=== PATIENT | male | born 1955 | race Two or more races ===

== ENCOUNTER 2021-02-12 10:27 | Emergency (ER) | payer OTHER ==
[~2021-02-12] VITALS: Ht 160 cm; Wt 65.9 kg
[2021-02-12 13:39] VITALS: BP 179/77
[2021-02-12] MEDS ORDERED: KETO5DRO4 EACHEYE (14:24)
[2021-02-12] MEDS ORDERED: CETI10TA74 PO (14:24)
--- NOTE | 2021-02-12 14:24 | PHYS DOC ---
Past Medical History Past Medical History: Diabetes-Type II, Hypertension Past Surgical History: No Surgical History Smoking Status: Never Smoker Alcohol Use: None General Adult EDM: Chief Complaint: EYE PROBLEMS HPI: HPI: Patient is a 65 year old male with history of diabetes, hypertension, who presents to the ED today complaining of bilateral eye redness, itching, clear drainage, symptoms began 3 days ago. Patient denies any vision loss. Review of Systems: Review of Systems: Constitutional: Denies fever or chills. [] Eyes: Reports bilateral eye redness, itching, clear drainage. Denies change in visual acuity. [] Musculoskeletal: Denies back pain or joint pain. [] Integument: Denies rash. [] Neurologic: Denies headache, focal weakness or sensory changes. [] Psychiatric: Denies depression or anxiety. [] Heart Score: C/O Chest Pain: N/A Risk Factors: Risk Factors: DM, Current or recent (<one month) smoker, HTN, HLP, family history of CAD, obesity. Risk Scores: Score 0 - 3: 2.5% MACE over next 6 weeks - Discharge Home Score 4 - 6: 20.3% MACE over next 6 weeks - Admit for Clinical Observation Score 7 - 10: 72.7% MACE over next 6 weeks - Early Invasive Strategies Physical Exam: PE: Constitutional: Well developed, well nourished, no acute distress, non-toxic appearance. [] HENT: Normocephalic, atraumatic, bilateral external ears normal, oropharynx moist, no oral exudates, nose normal. [] Eyes: PERRLA, EOMI, bilateral conjunctive are mildly injected, clear drainage noted Skin: Warm, dry, no erythema, no rash. [] Back: No tenderness, no CVA tenderness. [] Extremities: No tenderness, no cyanosis, no clubbing, ROM intact, no edema. [] Neurologic: Alert and oriented X 3, normal motor function, normal sensory function, no focal deficits noted. [] Psychologic: Affect normal, judgement normal, mood normal. [] Current Patient Data: Vital Signs: Vital Signs Date Time Temp Pulse Resp B/P (MAP) Pulse Ox O2 Delivery O2 Flow Rate FiO2 02/12/21 13:39 97.7 72 16 179/77 (111) 97 Room Air 97.7 EKG: EKG: [] Radiology/Procedures: Radiology/Procedures: [] Course & Med Decision Making: Course & Med Decision Making Pertinent Labs and Imaging studies reviewed. (See chart for details) This is a 65-year-old male patient with allergic conjunctivitis. Discharged with Zaditor and Zyrtec. Follow-up with glass installer as needed Neil Disclaimer: Neil Disclaimer: This electronic medical record was generated, in whole or in part, using a voice recognition dictation system. Departure Departure Impression: Primary Impression: Allergic conjunctivitis of both eyes Disposition: HOME / SELF CARE / HOMELESS Condition: STABLE Referrals: PEDRO PABLO GAO MD (PCP) follow up next week DEMARIO KAUFFMAN MD follow up next week Patient Instructions: Allergic Conjunctivitis, [id number] Additional Instructions: You were seen for allergic conjunctivitis. Use the prescribed medications as ordered. Follow-up with your own doctor or the provided glass installer in 1 to 2 weeks Scripts Cetirizine Hcl (ZYRTEC) 10 Mg Tablet 1 TAB PO DAILY, #30 TAB 2 Refills Prov: REBECA DAMICO APRN 02/12/21 Ketotifen Fumarate (ZADITOR) 5 Ml Drops 1 DROP EACHEYE BID, #5 ML 1 Refill Prov: REBECA DAMICO APRN 02/12/21 REBECA DAMICO APRN Feb 12, 2021 14:24
== END 2021-02-12 14:31 | disposition home or self-care (01) ==
LOC: ER 10:27
DX: H10.13 Acute atopic conjunctivitis, bilateral (principal); E11.9 Type 2 diabetes mellitus without complications; I10 Essential (primary) hypertension
CPT/HCPCS: 99282